=== PATIENT | male | born 1960 | race Caucasian/White ===

== ENCOUNTER 2018-10-29 11:52 | Outpatient (CLI) | payer MEDICAID, MEDICARE, OTHER ==
[~2018-10-29 11:52] MED LIST: ALBU8.5H8 IH; ASPI-12 PO; ATOR20TA PO; BECL8.7A7 PO; DOCU-28 PO; DULO60CA45 PO; GABA300C PO; PRAZ1CAP5 PO; PSEU-250 PO; QUET25TA PO; TIZA4TAB11 PO
== END 2018-10-29 23:59 | disposition home or self-care (01) ==
LOC: RAD 11:52
DX: R56.9 Unspecified convulsions (principal); F17.200 Nicotine dependence, unspecified, uncomplicated; J45.909 Unspecified asthma, uncomplicated; Z79.82 Long term (current) use of aspirin
CPT/HCPCS: 95819

== ENCOUNTER 2021-02-23 08:56 | Outpatient (CLI) | payer MEDICARE, MEDICAID | END 2021-02-23 23:00 | disposition home or self-care (01) | LOC: RAD 08:56 | PROVIDERS: ATTEND Family Medicine | DX: R55 Syncope and collapse (principal); R56.9 Unspecified convulsions | CPT/HCPCS: 95816 ==